=== PATIENT | male | born 1955 | race Caucasian/White ===

== ENCOUNTER → 2016-07-24 | Outpatient (CLI) | payer OTHER | END | disposition home or self-care (01) | LOC: PTH.S 07:30 | DX: Z51.81 Encounter for therapeutic drug level monitoring (principal); Z79.01 Long term (current) use of anticoagulants; Z95.2 Presence of prosthetic heart valve ==

== ENCOUNTER → 2016-09-21 | Outpatient (CLI) | payer OTHER | END | disposition home or self-care (01) | LOC: PTH.S 09-20 15:00 | DX: Z51.81 Encounter for therapeutic drug level monitoring (principal); Z79.01 Long term (current) use of anticoagulants; Z95.2 Presence of prosthetic heart valve ==